=== PATIENT | female | born 1960 | race Caucasian/White ===

== ENCOUNTER → 2020-06-26 14:22 | Outpatient (CLI) | payer OTHER, SELFPAY ==
[2013-09-30 12:00] VITALS: BMI 33.0
[2020-06-26 17:55] LABS: Absolute Lymphocyte Count 1.66 X10^3/uL (0.83-4.51); Absolute Neutrophil Count 4.7 X10^3/uL (2.0-7.7); Basophil# 0.05 X10^3/uL; Basophil% 0.7 % (0-1); Eosinophil# 0.15 X10^3/uL; Eosinophils% 2.1 % (0-5); Erythrocyte Sedimentation Rate 2 mm/hr (0-30); Hematocrit 43.9 % (37-47); Hemoglobin 14.1 g/dL (12.0-15.0); Lymphocyte # 1.66 X10^3/ul (4.0); Lymphocyte % 22.9 % (19-41); Mean Corp Hgb Conc 32.1 g/dL (32-36); Mean Corpuscular Hgb 31.1 pg (27.0-32.0); Mean Corpuscular Volume 96.7 fL (81-99); Mean Platelet Vol. 10.1 fl (6.2-12.0); Monocyte# 0.64 X10^3/uL; Monocyte% 8.8 % (0-10); NRBC Flagged by Analyzer 0 % (0-5); Neutrophil # 4.71 X10^3/uL (2.7-7.7); Neutrophil % 64.9 % (47-70); Platelet Count 243 K/mm3 (150-450); RBC Distribution Width CV 12.2 % (11.6-14.6); Red Blood Count 4.54 M/mm3 (4.2-5.4); White Blood Count 7.3 K/mm3 (4.4-11.0)
[2020-06-26 18:06] LABS: CRP 8.11 mg/L (0.0-3.0)
== END ==
PROVIDERS: PCP Preventive Medicine Occupational Medicine; Referring Provider Physician Assistant Surgical; Visit Provider Physician Assistant Surgical
DX: M25.562 Pain in left knee (principal); Z96.653 Presence of artificial knee joint, bilateral
CPT/HCPCS: 36415; 85025; 85652; 86140

== ENCOUNTER 2020-11-05 12:13 | Day surgery (SDC) | payer OTHER, SELFPAY ==
--- NOTE | 2020-11-04 08:15 | HP.PCM_ITS ---
- Problem List (1) Endometrial thickening on ultrasound Status: Acute (2) Uterine polyp Status: Acute History and Physical Date of Admission: 11/05/20 DATE OF SERVICE: October 15, 2020 ? PROBLEM:?Endometrial thickening on pelvic US, polyp on EMB ? PAST SURGICAL HISTORY:? PAST SURGICAL HISTORY PAST SURGICAL HISTORY Procedure Laterality Date ? FIBEROP EVAL KOCK POUCH W/BX ? 02/26/2010 ? Dr. Ramirez ? KNEE ORTHOSIS/O&P ? 09/2011 ? right ? LIGATE FALLOPIAN TUBE ? 1994 ? PAST SURGICAL HISTORY OF ? 12/2017 ? right elbow ? PAST SURGICAL HISTORY OF ? 12/2017 ? bone removal from right hand at [facility] ? PAST SURGICAL HISTORY OF ? 10/05/2018 ? Foot Surgery for Plantar Fascitis RIGHT foot ? PAST SURGICAL HISTORY OF ? 12/2018 ? left wrist - joint removed for Osteoarthritis ? PAST SURGICAL HISTORY OF ? 2019 ? plate removed from left wrist ? PROCTECTOMY,COMPL,COLECTOMY,BX'S ? ? ? J pouch x 8 ? RECONSTR NOSE ? ? ? REMOVAL OF TONSILS,12+ Y/O ? ? ? TOTAL KNEE REPLACEMENT ? 06/2011 ? Left ? TOTAL KNEE REPLACEMENT ? 09/27 ? right ? WRIST SURGERY HX Left 04/2016 ? PAST MEDICAL HISTORY:? PAST MEDICAL HISTORY PAST MEDICAL HISTORY Diagnosis Date ? Acute sinusitis, unspecified ? ? Arthritis ? ? Rheumatoid Arthritis and Osteoarthritis ? Fibromyalgia ? ? Osteopenia 2009 ? Pouchitis (HCC) ? ? Ulcerative colitis (HCC) 1996 ? S/P colectomy and J pouch ? SUBJECTIVE:?No PMB.? ? FINAL DIAGNOSIS Endometrium, biopsy ?Partially infarcted and hyalinized endometrial polyp.? ? Pelvic US: Impression Normal appearing axial uterus that measures 62 mm x 41 mm x 33 mm. The central endometrium complex measures 12 mm in combined thickness. The endometrium is thickened and cystic appearing. The contour of the endometrial cavity was normal on 3-D imaging. The left ovary is normal appearing. There is a 40 mm simple appearing cyst present in the right ovary. There is no free fluid visualized in the peritoneal cavity. Recommendations The right ovarian cyst is stable in size. A simple ovarian cyst less than 7cm in a ?postmenopausal woman is likely benign. Follow up imaging for stability is recommended in 12 months. Consider further clinical evaluation of the endometrial cavity. ? SOCIAL HISTORY:? SOCIAL HISTORY Social History ? Tobacco Use ? Smoking status: Never Smoker ? Smokeless tobacco: Never Used Substance Use Topics ? Alcohol use: Yes ? ? Comment: occasional ? Drug use: No ? Allergies: ?Ambien [Zolpidem Ta* ???Mental Status Change ?Adhesive Tape (Val* ???Rash ?Dust ?Intolerance ?Grass Pollen ?Intolerance ?Hydrocodone ?Hives ?Mold ?Intolerance ?Pollen ?Intolerance ?Trees ?Intolerance ? w Current Outpatient Medications on File Prior to Visit Medication Sig ? triamcinolone acetonide (KENALOG) 0.1 % cream Apply to affected area twice daily. ? fluticasone propionate (FLONASE NASAL) Use in the nose. ? ergocalciferol, vitamin D2, (VITAMIN D2 ORAL) Take by mouth. ? cyanocobalamin, vitamin B-12, (VITAMIN B-12 ORAL) Take by mouth. ? aspirin, enteric coated (ASPIRIN, ENTERIC COATED) 81 mg EC tablet Take 81 mg by mouth once daily. ? FLUTICASONE/SALMETEROL (ADVAIR DISKUS INHALATION) Inhale 250 Units as instructed. ? ascorbic acid(VITAMIN C 500 MG TAB) Take one(1) tablet daily. ? XYLOCAINE JELLY 2 % MM GEL As needed ? MULTIVITAMIN ORAL Take ?by mouth once daily. ? DIPHENOXYLATE-ATROPINE 2.5 MG-0.025 MG TAB 2-3 pills before each meal No current facility-administered medications on file prior to visit. ? OBJECTIVE: ? VITALS:? BP 130/80 ? Pulse 78 ? Resp 18 ? Ht 5' 2 (1.575 m) ? Wt 214 lb 3.2 oz (97.2 kg) ? LMP 04/12/2010 ? BMI 39.18 kg/m? ? HEENT: ?Normocephalic, atraumatic, Mucus membranes moist without lesions. ? NECK: ???Soft and Supple. ?No adenopathy , thyromegaly or bruits. ? SKIN: No lesions. ? CHEST: Clear to auscultation. ?No wheezes or rales. ?Good air exchange. ? HEART: Regular rate and rhythm ?No S3 or S4. ?No gallops or rubs. ? BACK: Nontender with no CVA tenderness. ? ABDOMEN: Soft, non-tender, non-distended, no masses, no hepatosplenomegaly. ? LOWER EXTREMITIES: There was no pitting edema, no palpable cords and no skin changes. ? ? ? ASSESSMENT:?Endometrial thickening, polyp ? PLAN: 1)?Discussed hysteroscopy, polypectomy, D&C in detail.?The rationale for the proposed surgery was discussed in addition to risks, benefits, and alternatives. ?General pre- and post-operative care was reviewed. ?Questions were answered. ?After discussion, the patient indicated a desire to proceed with the planned surgery. ? Natasha Morris,?DO
[2020-11-05] VITALS (10 sets, daily range): BP systolic 143–166; BP diastolic 68–82; PULSE 70–88; RESP 16–18; TEMP 36.2–36.9; O2SAT 92–100; BMI 37.4
[2020-11-05] MEDS: Lactated Ringers 1,000 ML 100 ML IV ×2 (13:04→14:35)
[2020-11-05 13:26] LABS: Hematocrit 45.1 % (37-47); Hemoglobin 14.9 g/dL (12.0-15.0); Mean Corpuscular Hgb 30.7 pg (27.0-32.0); Mean Platelet Vol. 9.9 fl (6.2-12.0); Platelet Count 244 K/mm3 (150-450); RBC Distribution Width CV 11.9 % (11.6-14.6); RBC Distribution Width SD 40.4 fl (35.1-43.9); Red Blood Count 4.85 M/mm3 (4.2-5.4); White Blood Count 5.7 K/mm3 (4.4-11.0)
--- NOTE | 2020-11-05 13:26 | DCINST_ITS ---
Discharge Diet: No Restrictions Discharge Activity: [address] - 24 hours or more after surgery Return to work on:: 11/09/20 May resume sexual activity in: 1 week - No intercourse, tampons, hot tubs, tub baths Weight Bearing Status: Weight bearing as tolerated Lifting Restrictions: None Call your doctor if you observe: Fever of 101 or Higher, Change in Color, Inability to urinate, Inability to have a bowel movement, Using more than one pad per hour, Shortness of breath, Dizziness, Fainting spells, Swelling in the ankles, Chest pain, Increased palpitations (irregular heartbeat), Calf discomfort, Uncontrolled pain Allergies/Adverse Reactions: Allergies hydrocodone Allergy (Verified 10/21/20 09:56) Hives zolpidem tartrate [From Ambien] Adverse Reaction (Mild, Verified 10/21/20 09:56) SLEEPWALKING Medications to take at Discharge Diphenoxylate/Atrop [Lomotil] 2 tablet PO TID PRN PRN 09/10/13 Fluticasone/Salmeterol [Advair 250/50 Mcg Diskus] 1 puff INHALATION BID 09/10/13 Lidocaine [Lidocaine 5%] 35 gm TOPICAL PRN PRN 09/10/13 Albuterol IH (ProAir) [Proair Hfa (SP)Vent Pts] 2 puff INHALATION Q4H PRN PRN 10/21/20 Calcium Carbonate [Tums] 500 mg PO Q4H PRN PRN 10/21/20 Cholecalciferol (Vitamin D3) [Vitamin D3] 500 mcg PO DAILY 10/21/20 Cyanocobalamin (Vitamin B-12) [Vitamin B-12] 1,000 mcg PO DAILY 10/21/20 Fluticasone 0.05% [Flonase Nasal [place]] 1 spray NASAL DAILY 10/21/20 Orders to be completed after discharge: Type & Screen - PAT ONLY Time Frame: 11/05/20, Facility: [facility], Location: Laboratory CBC-Complete Blood Cnt No Diff Time Frame: 11/05/20, Facility: [facility], Location: Laboratory Primary Care Physician: Farzad Hall DO [Primary Care Provider] - Test Results: Test results from this visit will be discussed in further detail at your follow- up appointment, if applicable. Please Follow Up With: Natasha Morris DO When: 1 week
[2020-11-05] MEDS: Lidocaine 1% (30 ml sdv) 30 ML Vial (13:41)
--- NOTE | 2020-11-05 13:50 | EMB_PTH ---
PATIENT: KASANDRA DORADO LOC: [facility] U#:[id number] AGE/SX: 60/F ROOM: RE11/05/[address]: Dr. Natasha Morris DO : 1960 BED: DIS: 11/05/2020 SPEC #: [id number] RECD: 11/05/20 14:13 STATUS: TERRY CHRISTI #: [id number] CANDELARIO: 11/05/20 13:[address]: Natasha Morris DEPT: SURGICAL PATHOLOGY RECD BY: Estefani Barreto ENTERED: 11/06/20 07:27 SP TYPE: ENDOM BX/C JULIOHR DR: Dr. Farzad Hall DO Tissues: Endometrium, NOS Procedures: Surgery Specimen Level IV HEADER OPERATION: Hysteroscopy, D & C Symphion, polypectomy PRE-OP DIAGNOSIS: Endometrial thickening, polyp TISSUE SUBMITTED: Endometrial curettings, polyp MICROSCOPIC DIAGNOSIS Endometrial curettings, polyp, polypectomy: Fragments of benign endometrial tissue with inactive endometrium. Fragments of benign polyp, consistent with mixed endometrial and endocervical polyp. ARMAAN:david 11/09/2020 MICROSCOPIC DESCRIPTION Slides are reviewed. GROSS DESCRIPTION Received in fixative is one container labeled with the patient's name and designated endometrial curettings, polyp. The specimen consists of multiple fragments of armenta hemorrhagic soft tissue that in aggregate measure 2.5 x 2 x 0.1 cm. The specimen is totally submitted in one cassette. / ARMAAN:david 11/06/20 TC:5 CPT: 45521
--- NOTE | 2020-11-05 14:26 | OP.PCM_ITS ---
Problem List (1) Endometrial thickening on ultrasound Status: Acute (2) Uterine polyp Status: Acute Report of Operation Date of Procedure: 11/05/20 Pre-Operative Diagnosis: Endometrial thickening on pelvic ultrasound, polyp on EMB Post-Operative Diagnosis: As above Surgery/Procedure Performed:: Hysteroscopy, polypectomy, D&C Description of Surgical Findings:: Two endometrial polyps note. Bilateral tubal ostia visualized. Thin, atrophic appearing endometrium. Type of Anesthesia:: MAC Special Medications: None Specimen's removed: Endometrial polyps and endometrial curettings Drains: None Estimated Blood Loss (mL): < 50 cc Fluids Replaced: 50 cc fluid deficit Description of Procedure: Patient was taken to the operating room where MAC anesthesia was induced. She was prepped and draped in the dorsal lithotomy position using yellowfin stirrups. A weighted speculum was placed to expose the cervix. The anterior lip of the cervix was grasped with a single-tooth tenaculum. The cervix was serially dilated to accommodate a Symphion hysteroscope. The Symphion hysteroscope was gently advanced to the fundus of the uterus and normal saline was used as distention media. 2 endometrial polyps were noted. The Symphion resection device was introduced into the uterine cavity, and using the resection device the 2 polyps were removed completely. The uterine cavity otherwise was normal- appearing and bilateral tubal ostia were visualized. The endometrium was thin and atrophic appearing. The Symphion hysteroscope was then removed. A sharp curettage was performed for scant amount of endometrial tissue. The 2 polyps and the endometrial curettings were sent to pathology for review. All instruments were removed from the vagina. Bleeding was hemostatic. A vaginal sweep was performed. Instrument and sponge counts were correct. The patient was taken to the recovery room in stable condition. Grafts/Implants Used: None - Complications None - Admit VTE Documentation VTE Present on Admission: No VTE Mechan Device Prophylaxis: SCD's VTE Pharm Prophylaxis ordered?: No
== END 2020-11-05 16:44 | disposition home or self-care (01) ==
LOC: SDC 12:15 → AC 12:16
PROVIDERS: PCP Preventive Medicine Occupational Medicine; Referring Provider Obstetrics & Gynecology; Visit Provider Obstetrics & Gynecology
PROC: 0UB98ZZ Excision of Uterus, Via Natural or Artificial Opening Endoscopic (ICD-10-PCS; CPT 58558; principal; 2020-11-05 13:35)
DX: N84.0 Polyp of corpus uteri (principal); M06.9 Rheumatoid arthritis, unspecified; Z78.0 Asymptomatic menopausal state
CPT/HCPCS: 58558; 85027; 86850; 86900; 86901; 88305; J7120; J2405

== ENCOUNTER → 2021-09-06 | Outpatient (CLI) | payer OTHER, SELFPAY | END | disposition home or self-care (01) | LOC: LABSPEC 15:13 | PROVIDERS: PCP Preventive Medicine Occupational Medicine; Visit Provider Otolaryngology Otolaryngology/Facial Plastic Surgery | DX: J32.9 Chronic sinusitis, unspecified (principal) | CPT/HCPCS: 87070; 87077; 87186; 87205 ==

== ENCOUNTER → 2024-05-06 | Outpatient (CLI) | payer OTHER, SELFPAY ==
[2024-05-06 17:56] LABS: AST(SGOT) 25 U/L (15-37); Alanine Aminotransfer ALT/SGPT 27 U/L (13-56); Anion Gap 6 (5-15); BUN 19 mg/dL (7-18); BUN/Creat Ratio 17.4 RATIO (10-20); Chloride 110 mmol/L (98-107); Creatinine, Serum 1.09 mg/dL (0.55-1.02); EST Glomerular Filtration Rate 54 mL/min (>60); Est Glom Filt Rate - Afr Amer 65 mL/min (>60); Glucose 114 mg/dL (74-106); Sodium Level 138 mmol/L (136-145)
[2024-05-06 18:30] LABS: Hepatitis B Surface Antibody Non-Reactive; Hepatitis B Surface Antigen Non-Reactive (Nonreactive); Hepatitis C Antibody Non-Reactive (Nonreactive)
[2024-05-08 19:07] LABS: Hepatitis B Core Ab Total Negative (Negative); QNTFERON TB Mitogen Value > 10.00 IU/mL (.); QNTFERON TB Nil Value 0.01 IU/mL (.); QNTFERON TB1+ Ag Value 0.01 IU/mL (.); QNTFERON TB2+ Ag Value 0.01 IU/mL (.); QNTIFERON TB Positive Criteria Negative (Negative)
== END | disposition home or self-care (01) ==
PROVIDERS: PCP Preventive Medicine Occupational Medicine; Referring Provider Dermatology Pediatric Dermatology; Visit Provider Dermatology Pediatric Dermatology
DX: Z51.81 Encounter for therapeutic drug level monitoring (principal); Z79.620 Long term (current) use of immunosuppressive biologic; Z79.899 Other long term (current) drug therapy
CPT/HCPCS: 36415; 80048; 84450; 84460; 86480; 86704; 86706; 86803; 87340

== ENCOUNTER → 2024-05-08 | Outpatient (CLI) | payer OTHER, SELFPAY ==
[2024-05-08 12:14] LABS: Absolute Lymphocyte Count 1.89 X10^3/uL (0.83-4.51); Basophil# 0.04 X10^3/uL; Basophil% 0.7 % (0-1); Eosinophil# 0.09 X10^3/uL; Eosinophils% 1.6 % (0-5); Hematocrit 42.1 % (37-47); Hemoglobin 13.8 g/dL (12.0-15.0); Lymphocyte # 1.89 X10^3/ul (0.83-4.51); Lymphocyte % 34.1 % (19-41); Mean Corp Hgb Conc 32.8 g/dL (32-36); Mean Corpuscular Volume 91.5 fL (81-99); Mean Platelet Vol. 10.1 fl (6.2-12.0); NRBC Flagged by Analyzer 0 % (0-5); Neutrophil # 3.02 X10^3/uL (2.7-7.7); Neutrophil % 54.4 % (47-70); Platelet Count 220 K/mm3 (150-450); RBC Distribution Width CV 12.4 % (11.6-14.6); RBC Distribution Width SD 41.1 fl (35.1-43.9); White Blood Count 5.6 K/mm3 (4.4-11.0)
== END | disposition home or self-care (01) ==
LOC: MTLAB 11:04
PROVIDERS: PCP Preventive Medicine Occupational Medicine; Referring Provider Dermatology Pediatric Dermatology; Visit Provider Dermatology Pediatric Dermatology
DX: L82.1 Other seborrheic keratosis (principal); L57.8 Other skin changes due to chronic exposure to nonionizing radiation; D22.5 Melanocytic nevi of trunk; L81.4 Other melanin hyperpigmentation; Z71.89 Other specified counseling; D17.24 Benign lipomatous neoplasm of skin and subcutaneous tissue of left leg; L40.8 Other psoriasis; L40.0 Psoriasis vulgaris; Z79.899 Other long term (current) drug therapy; Z79.620 Long term (current) use of immunosuppressive biologic
CPT/HCPCS: 85025

== ENCOUNTER → 2025-02-04 | Outpatient (CLI) | payer OTHER, SELFPAY ==
[2025-02-06 10:08] LABS: QNTFERON TB Mitogen Value > 10.00 IU/mL (.); QNTFERON TB Nil Value 0.14 IU/mL (.); QNTFERON TB1+ Ag Value 0.08 IU/mL (.); QNTIFERON TB Positive Criteria Negative (Negative)
== END | disposition home or self-care (01) ==
LOC: MTLAB 13:36
PROVIDERS: PCP Preventive Medicine Occupational Medicine; Referring Provider Dermatology; Visit Provider Dermatology
DX: L40.0 Psoriasis vulgaris (principal); L40.59 Other psoriatic arthropathy; K51.80 Other ulcerative colitis without complications; L40.8 Other psoriasis; Z79.899 Other long term (current) drug therapy
CPT/HCPCS: 36415; 86480